=== PATIENT | male | born 1970 | race Caucasian/White ===

== ENCOUNTER 2016-08-10 11:07 | Day surgery (SDC) | payer OTHER ==
--- NOTE | ~2016-08-10 | EGD ---
EGD REPORT [facility] [address] [place]. [address] NAME: BRAYDEN HALE : [birth year] [place] [facility] [place] [id number] AGE: 45 ADM/REG DATE : 08/10/16 MR#: [id number] REPORT SERV DATE: 08/10/16 DICTATED BY: RC PEÑA DATE: 08/10/16 REPORT STATUS : Draft [facility]ANS[facility] BY: [facility] DATE: 08/10/16 [facility] Center Patient Name: Brayden Hale Date of : 1970 Attending MD: RC PEÑA MD Procedure Date No Time: 08/10/2016 Procedure: Upper GI endoscopy Indications: Screening procedure Referring MD: Deborah Jeffers MD Medicines: Monitored Anesthesia Care Complications: No immediate complications. Procedure: Pre-Anesthesia Assessment: - ASA Grade Assessment: III - A patient with severe systemic disease. After obtaining informed consent, the endoscope was passed under direct vision. Throughout the procedure, the patient's blood pressure, pulse, and oxygen saturations were monitored continuously. The GIF [id number] was introduced through the mouth, and advanced to the second part of duodenum. The upper GI endoscopy was accomplished without difficulty. The patient tolerated the procedure well. Findings: The examined esophagus was normal. A 2 cm hiatus hernia was present. Localized mildly erythematous mucosa without bleeding was found in the gastric antrum. Biopsies were taken with a cold forceps for histology. Moderate portal hypertensive gastropathy was found in the gastric fundus and in the gastric body. A small amount of food (residue) was found in the gastric body. Many non-bleeding superficial duodenal ulcers were found in the duodenal bulb. The largest lesion was 2 mm in largest dimension. Impression: - Normal esophagus. - Hiatus hernia. - Erythematous mucosa in the antrum. Biopsied. - Portal hypertensive gastropathy. - A small amount of food (residue) in the stomach. - Multiple duodenal ulcers with clean base. Recommendation: - Patient has a contact number available for emergencies. The signs and symptoms of potential delayed complications were discussed with the patient. Return to normal activities tomorrow. Written discharge EGD REPORT [address] [address] NAME: BRAYDEN HALE : [birth year] [place] [facility] [place] [id number] AGE: 45 ADM/REG DATE : 08/10/16 MR#: [id number] REPORT SERV DATE: 08/10/16 DICTATED BY: RC PEÑA DATE: 08/10/16 REPORT STATUS : Draft TRANSCRIBED BY: [employer] DATE: 08/10/16 instructions were provided to the patient. - Regular diet. - Continue present medications. - Use Prilosec (omeprazole) 20 mg PO daily. - Repeat the upper endoscopy in 3 years for screening purposes. - Return to referring physician. - No aspirin, ibuprofen, naproxen, or other non-steroidal anti-inflammatory drugs. Procedure Code(s): --- Professional --- 85016, Esophagogastroduodenoscopy, flexible, transoral; with biopsy, single or multiple Diagnosis Code(s): --- Professional --- K44.9, Diaphragmatic hernia without obstruction or gangrene K31.9, Disease of stomach and duodenum, unspecified K76.6, Portal hypertension K31.89, Other diseases of stomach and duodenum K26.9, Duodenal ulcer, unspecified as acute or chronic, without hemorrhage or perforation Z13.810, Encounter for screening for upper gastrointestinal disorder CPT copyright 2013 [employer]. All rights reserved. The codes documented in this report are preliminary and upon dress operator review may be revised to meet current compliance requirements. RC PEÑA MD 08/10/2016 1:47 PM This report has been signed electronically. Number of Addenda: 0 Note Initiated On: 08/10/2016 1:23 PM Scope Withdrawal Time 0 hours 0 minutes 0 seconds [address] [place] [id number]
[~2016-08-10 11:07] MED LIST: SPIRO25 PO; TRAZ50 PO
== END 2016-08-10 23:59 | disposition home or self-care (01) ==
LOC: DMU 11:07
PROVIDERS: Internal Medicine Gastroenterology
PROC: 0DB68ZX Excision of Stomach, Via Natural or Artificial Opening Endoscopic, Diagnostic (ICD-10-PCS; principal; 2016-08-10 12:30)
DX: Z13.810 Encounter for screening for upper gastrointestinal disorder (principal); K44.9 Diaphragmatic hernia without obstruction or gangrene; K31.9 Disease of stomach and duodenum, unspecified; K26.9 Duodenal ulcer, unspecified as acute or chronic, without hemorrhage or perforation; K76.6 Portal hypertension; K31.89 Other diseases of stomach and duodenum; F17.200 Nicotine dependence, unspecified, uncomplicated; K70.30 Alcoholic cirrhosis of liver without ascites; Z79.899 Other long term (current) drug therapy
CPT/HCPCS: 88305